=== PATIENT | female | born 1940 | race African-American/Black ===

== ENCOUNTER → 2019-08-11 17:40 | Outpatient (CLI) | payer MEDICARE, BC ==
[2015-08-15 14:28] VITALS: BMI 30.5
[~2019-08-11 17:40] MED LIST: ASPIRIN EC81 M1 PO; CARDIZEM 90 MG90 MG PO; COLACE100 MG PO; ELIQUIS2.5 MG PO; FISH OIL 1,0001 CA1 PO; PERCOCET 10/3251 TA1 PO; PRAVACHOL40 MG PO; ULTRAM50 MG PO; VITAMIN B-121000 MCG PO
== END | disposition home or self-care (01) ==
LOC: D.LABREF 17:40
PROVIDERS: ATTEND Orthopaedic Surgery
DX: M17.12 Unilateral primary osteoarthritis, left knee (principal)

== ENCOUNTER 2019-08-12 12:24 | Inpatient (IN) | payer MEDICARE, BC ==
[~2019-08-12] VITALS: Ht 175.3 cm; Wt 95.9 kg
[~2019-08-12 12:24] MED LIST changes: -ASPIRIN EC81 M1 PO; -COLACE100 MG PO; -FISH OIL 1,0001 CA1 PO; -ULTRAM50 MG PO; -VITAMIN B-121000 MCG PO
[2019-08-25] MEDS ORDERED: FISH OIL 1,0001 CA1 PO (13:52)
[2019-08-25] MEDS ORDERED: ASPIRIN EC81 M1 PO (13:52)
[2019-08-25] MEDS ORDERED: VITAMIN B-121000 MCG PO (13:53)
[2019-08-26 11:05] LABS: APPEARANCE CLEAR (CLEAR); COLOR YELLOW (YELLOW)
[2019-08-26 11:06] LABS: BILIRUBIN NEGATIVE (NEGATIVE); GLUCOSE NEGATIVE (NEGATIVE); KETONE NEGATIVE (NEGATIVE); NITRITE NEGATIVE (NEGATIVE); PROTEIN NEGATIVE (NEGATIVE); UROBILINOGEN NORMAL (NORMAL)
[2019-08-26 11:21] LABS: ANION GAP 13.4 mmol/L (8-16); CALCIUM 9.8 mg/dL (8.5-10.1); CARBON DIOXIDE 28.4 mmol/L (21.0-32.0); CREATININE - SERUM 0.8 mg/dL (0.6-1.3); POTASSIUM - SERUM 3.8 mmol/L (3.5-5.1)
[2019-08-26 11:23] LABS: HEMATOCRIT 41.6 % (36.0-48.0); HEMOGLOBIN 13.4 g/dL (12-16); MCH 29.3 pg (26.0-34.0); MCHC 32.2 g/dL (31.0-37.0); MCV 90.8 fL (80.0-100.0); MEAN PLATELET VOLUME 9.4 fL (7.4-10.4); RBC 4.58 10x6/uL (4.00-5.40); RDW 14.4 % (11.5-14.5); WBC 8.8 10x3/uL (4.8-10.8)
[2019-08-26 11:26] LABS: APTT 28.8 SECONDS (22.8-39.4); INR 0.96 (0.85-1.17); PROTIME 12.3 SECONDS (11.6-15.0)
[2019-08-26 11:27] LABS: PLATELET COUNT 292 10x3/uL (130-400)
[2019-08-26 15:03] LABS: LYMPHOCYTES 46 % (15-50); MONOCYTES 14 % (2-11); NEUTROPHILS 36 % (40-80)
[2019-08-26 15:04] LABS: PLATELET ESTIMATE NORMAL
[2019-08-31] VITALS (12 sets, daily range): BP systolic 119–150; BP diastolic 52–86; Ht 175.3 cm; Wt 95.9 kg
--- NOTE | 2019-08-31 10:55 | NUR ---
PLASMA BLADE SET TO 6/8 BOVIE PAD RIGHT THIGH [id number] 11/27/20 PREPPED FROM TOURNIQUET TO TOES CIRCUMFERENTIALLY WITH HIBICLENS/ALCOHOL AND DRIED WITH STERILE TOWEL AND PREPPED WITH CHLORAPREP. STERILE GOWN AND GLOVES WORN DURING PREP. TRAFFIC MONITORED IN AND OUT OF ROOM AND KEPT TO MINIMUM. LAMINAR FLOW NOT IN USE
--- NOTE | 2019-08-31 12:03 | NUR ---
ICE APPLIED ORDERED. CALLED FOR POST OP XRAY.
--- NOTE | 2019-08-31 12:21 | NUR ---
PT RECIEVED FROM RECOVERY VIA BED AWAKE, ALERT AND ORIENTED X 4. RESP EVEN AND UNLABORED. DENIES PAIN AT THIS TIME. IV TO RIGHT ARM WITH 1/2 NS @ 100ML/HR INFUSING VIA PUMP. SITE WITHOUT REDNESS OR EDEMA. DRESSING C/D/I TO LEFT LOWER EXTREMITY. EXTREMITY WARM TO TOUCH. PT VOICES NUMBNESS TO EXTREMITY, UNABLE TO MOVE TOES. PULSES PALPABLE. ORIENTED TO ROOM, BED CONTROLS, AND CL. DENIES FURTHER NEEDS AT THIS TIME. CL WITHIN REACH. CONTINUE POC
--- NOTE | 2019-08-31 20:00 | NUR ---
ALERT RESTING IN BED CPM IN USE, ELYSIA WRAP IN PLACE TO LEFT KNEE, IV INFUSING WITHOUT DIFFICULTY, SEE SHIFT ASSESSMENT, CALL LIGHT IN REACH
[2019-09-01] VITALS: BP 130/70
[2019-09-01 04:00] VITALS: BP 124/64
[2019-09-01 06:59] LABS: HEMATOCRIT 33.1 % (36.0-48.0); HEMOGLOBIN 10.4 g/dL (12-16); MCH 28.5 pg (26.0-34.0); MCHC 31.4 g/dL (31.0-37.0); MCV 90.7 fL (80.0-100.0); MEAN PLATELET VOLUME 9.4 fL (7.4-10.4); RBC 3.65 10x6/uL (4.00-5.40); RDW 14.3 % (11.5-14.5); WBC 8.7 10x3/uL (4.8-10.8)
[2019-09-01 08:28] VITALS: BP 136/70
[2019-09-01 13:11] VITALS: BP 121/61
--- NOTE | 2019-09-01 14:59 | MORECARE ---
CASE MANAGEMENT DISCHARGE SUMMARY PATIENT: BK KEVIN I UNIT: [id number] ADM DATE: 08/31/19 AGE: 78 : 40 SEX: F ROOM/BED: D.9703 AUTHOR: KRYSTYNA,DOC PHYSICIAN: REFERRING PHYSICIAN: TINA SUTTON MD DATE OF SERVICE: 09/01/19 Discharge Plan Patient Name: BK KEVIN Facility: [facility]:[place] : 1940 Planned Disposition: Home Anticipated Discharge Date: Discharge Date: Expected LOS: Initial Reviewer: [email or web address] Initial Review Date: 08/31/2019 Generated: 09/01/19 3:59 pm Comments DCP- Discharge Planning Updated by [email or web address]: Kimberly Segura on 09/01/19 1:[address] Patient Name: BK KEVIN Admission Status: Urgent Accout number: [id number] Admission Date: 08-31-2019 : 1940 Admission Diagnosis: Attending: TINA SUTTON Current LOS: 1 Anticipated DC Date: Planned Disposition: Home Primary Insurance: MEDICARE A & B Discharge Planning Comments: CM met with patient to complete initial dc planning assessment. CM educated patient on the CM role and verbal consent given by patient to complete assessment. Patient lives at home where she is independent with her care. At discharge patient plans to return home and feels this is a safe discharge. CM discussed availability of home health, rehab services, and medical equipment. She plans on doing her OP PT at [facility]. I have made her appointment for Sep 03 @ 10:45 am . I spoke with Lalito. She has her walker, BSC and CPM already, it was delivered by [employer]. Patient denied known discharge needs at this time. CM will continue to follow and will assist as needed with dc plans/needs Baffle Installer: Kimbelry Segura DCPIA - Discharge Planning Initial Assessment Updated by [email or web address]: Kimberly Segura on 09/01/19 2:54 pm * Is the patient Alert and Oriented? Yes * How many steps to enter\exit or inside your home? 3/2 * PCP DR MCCOY * Pharmacy [facility] * Preadmission Environment Home with Family * ADLs Independent * Equipment Bedside Commode Rolling Walker * Other Equipment CPM * List name and contact numbers for known caregivers / representatives who currently or will assist patient after discharge: TIA IRAHETA [phone] * Verbal permission to speak to the caregivers and representatives has been obtained from the patient. N/A * Community resources currently utilized None * Additional services required to return to the preadmission environment? Yes * Can the patient safely return to the preadmission environment? Yes * Has this patient been hospitalized within the prior 30 days at any hospital? No Patient Name: BK KEVIN Page [id number] at 1459 All edits/amendments must be made on the electronic document DICTATION DATE: 09/01/191458 PSYCHIATRIC TECHNICIAN ASSISTANT: ROBERT 09/01/191458 RPT#: [id number] DC DATE: STATUS: ADM IN [facility] [address] [place] [address] END OF REPORT
[2019-09-01 16:48] VITALS: BP 148/84
[2019-09-01 20:00] VITALS: BP 135/71
[2019-09-02] VITALS: BP 105/441
[2019-09-02 04:00] VITALS: BP 114/49
--- NOTE | 2019-09-02 06:55 | NUR ---
ALERT AND ORIENTED, SITTING UP IN BED. NO C/O PAIN. NO S/S OF ACUTE DISTRESS NOTED. FAMILY AT BEDSIDE. UP WITH ASSIST. CPM ON AT THIS TIME. IV TO RIGHT FOREARM, SL. SITE PATENT WITHOUT REDNESS OR SWELLING. POD #2 LTK, DRESSING C/D/I. DENIES ANY NEEDS AT THIS TIME. CALL LIGHT IN REACH. WILL CONTINUE TO MONITOR.
[2019-09-02 06:57] LABS: HEMATOCRIT 31.1 % (36.0-48.0); HEMOGLOBIN 9.8 g/dL (12-16); MCH 28.7 pg (26.0-34.0); MCHC 31.5 g/dL (31.0-37.0); MCV 91.2 fL (80.0-100.0); MEAN PLATELET VOLUME 9.8 fL (7.4-10.4); RBC 3.41 10x6/uL (4.00-5.40); RDW 14.5 % (11.5-14.5); WBC 8.1 10x3/uL (4.8-10.8)
[2019-09-02 08:13] VITALS: BP 123/64
[2019-09-02] MEDS ORDERED: ULTRAM50 MG PO (08:45)
[2019-09-02] MEDS ORDERED: ELIQUIS2.5 MG PO (08:45)
[2019-09-02] MEDS ORDERED: COLACE100 MG PO (08:46)
--- NOTE | 2019-09-02 10:44 | NUR ---
I have reviewed this patient and I concur with the Shift Assessment completed by the Licensed Practical Nurse today this shift.
--- NOTE | 2019-09-02 11:05 | NUR ---
DISCHARGED PATIENT HOME WITH FAMILY VIA WHEELCHAIR, ACCOMPANIED BY STAFF. DISCONTINUED IV, CATHETER TIP INTACT. CHANGED DRESSING, SATURATED. APPLIED AQUACEL TO LEFT KNEE, SENT ONE HOME WITH PATIENT WELL. WENT OVER DISCHARGE INSTRUCTIONS WITH PATIENT, VERBALIZED UNDERSTANDING. DENIES ANYTHING FURTHER.
--- NOTE | 2019-09-03 09:13 | MORECARE ---
CASE MANAGEMENT DISCHARGE SUMMARY PATIENT: BK KEVIN I UNIT: [id number] ADM DATE: 08/31/19 AGE: 78 : 40 SEX: F ROOM/BED: D.1820 AUTHOR: KRYSTYNA,DOC PHYSICIAN: REFERRING PHYSICIAN: TINA SUTTON MD DATE OF SERVICE: 09/03/19 Discharge Plan Patient Name: BK KEVIN Facility: [facility]:[place] : 1940 Planned Disposition: Home Anticipated Discharge Date: Discharge Date: 09/02/2019 Expected LOS: Initial Reviewer: [email or web address] Initial Review Date: 08/31/2019 Generated: 09/03/19 10:12 am DCP- Discharge Planning Updated by [email or web address]: Kimberly Segura on 09/01/19 1:[address] Patient Name: BK KEVIN Admission Status: Urgent Accout number: [id number] Admission Date: 08-31-2019 : 1940 Admission Diagnosis: Attending: TINA SUTTON Current LOS: 1 Anticipated DC Date: Planned Disposition: Home Primary Insurance: MEDICARE A & B Discharge Planning Comments: CM met with patient to complete initial dc planning assessment. CM educated patient on the CM role and verbal consent given by patient to complete assessment. Patient lives at home where she is independent with her care. At discharge patient plans to return home and feels this is a safe discharge. CM discussed availability of home health, rehab services, and medical equipment. She plans on doing her OP PT at [facility]. I have made her appointment for Sep 03 @ 10:45 am . I spoke with Lalito. She has her walker, BSC and CPM already, it was delivered by [employer]. Patient denied known discharge needs at this time. CM will continue to follow and will assist as needed with dc plans/needs Commutator Repairer: Kimberly Segura DCPIA - Discharge Planning Initial Assessment Updated by [email or web address]: Kimberly Segura on 09/01/19 2:54 pm * Is the patient Alert and Oriented? Yes * How many steps to enter\exit or inside your home? 3/2 * PCP DR MCCOY * Pharmacy [facility] * Preadmission Environment Home with Family * ADLs Independent * Equipment Bedside Commode Rolling Walker * Other Equipment CPM * List name and contact numbers for known caregivers / representatives who currently or will assist patient after discharge: TIA IRAHETA [phone] * Verbal permission to speak to the caregivers and representatives has been obtained from the patient. N/A * Community resources currently utilized None * Additional services required to return to the preadmission environment? Yes * Can the patient safely return to the preadmission environment? Yes * Has this patient been hospitalized within the prior 30 days at any hospital? No Last DP export: 09/01/19 1:59 p Patient Name: BK KEVIN Page [phone] at 0913 All edits/amendments must be made on the electronic document DICTATION DATE: 09/03/19911 MACHINE ADJUSTER HELPER: ROBERT 09/03/19911 RPT#: [id number] DC DATE:09/02/19 STATUS: DIS IN [facility] [address] [place] [address] END OF REPORT
--- NOTE | 2019-09-17 12:28 | OP ---
PATIENT NAME: BK KEVIN I MEDICAL RECORD: [id number] :40 LOCATION:[id number] ADMISSION DATE:08/31/19 SURGEON: TINA SUTTON MD DATE OF OPERATION: 08/31/2019 PREOPERATIVE DIAGNOSIS: Degenerative arthritis, left knee. POSTOPERATIVE DIAGNOSIS: Degenerative arthritis, left knee. PROCEDURE: Left total knee arthroplasty. SURGEON: Tina Sutton MD PROJECT BUYER: Braulio Estevez ANESTHESIA: Rubio INTRAOPERATIVE COMPLICATIONS: None. SUMMARY OF PATHOLOGIC FINDINGS: The patient has extensive osteoarthritis in the medial compartment as well as the lateral patellofemoral compartment. OPERATIVE SUMMARY IN DETAIL: After obtaining the appropriate preoperative orthopedic surgery consent as well as anesthetic consultation, evaluation and clearance, the patient was brought to the operating room and placed on the operating room table in supine position. After adequate general laryngeal mask airway was administered, tourniquet was placed at the proximal aspect of the left lower extremity. Left lower extremity was then prepped and draped in routine sterile fashion. The leg was elevated and exsanguinated and tourniquet was inflated to 350 mmHg. Routine midline incision was taken down for a paramedian arthrotomy. The patella was everted. Distal femur was exposed. Soft tissue excision was done in the usual fashion. Having completed that, intramedullary guide hole was created for intramedullary guided distal femoral cut. This was then followed by complete exposure of the proximal tibia where all meniscus remnants were removed. Intramedullary guide holes were also created here for proximal tibial cutting. Appropriate measurements were taken. Distal femoral chamfer cuts were made. Trials were put into place and taken through a range of motion and found to be stable in all planes. Final distal femoral and proximal tibial preparations were then followed by resection of the arthritic patellar surface. This was followed by preparation of the patella. At this point, the knee was irrigated with pulsatile lavage civil engineering specialist. Final components were cemented into place. All excess cement was removed. After the excess cement was removed and allowed to harden, the knee was taken through range of motion and found to be stable in all planes with good patellar tracking. A gram of vancomycin and a gram tobramycin were then placed into the knee. Paramedian arthrotomy was closed by Braulio Estevez with #2 Ethibond, followed by #1 Vicryl, 2-0 Vicryl and skin shreya. Sterile dressings were applied. Tourniquet was deflated. The patient was awakened and taken to the recovery room in stable condition. All final needle and sponge counts were correct. TRANSINT:[id number] Voice Confirmation ID: [id number] DOCUMENT ID: [id number] OPERATIVE REPORT [id number] BK KEVIN MD, TINA HORVATH at 1228 CC: [id number] DICTATION DATE: 09/17/19 1052 TRAILER RENTAL CLERK: 09/17/19 1103 DIS IN 09/02/19 [place] [id number] [place] [address]
== END 2019-09-02 11:07 | disposition home or self-care (01) | DRG 470 ==
LOC: D.SDCHOLD 08-26 10:00 → D.MS 08-31 07:45 → D.SDCHOLD 08-31 09:45 → D.MS 08-31 11:49
PROVIDERS: ADMIT Orthopaedic Surgery; ATTEND Orthopaedic Surgery
PROC: 0SRD0J9 Replacement of Left Knee Joint with Synthetic Substitute, Cemented, Open Approach (ICD-10-PCS; principal; 2019-08-31 09:45)
DX: M17.12 Unilateral primary osteoarthritis, left knee (principal); I10 Essential (primary) hypertension